=== PATIENT | female | born 1975 | race Caucasian/White ===

== ENCOUNTER 2019-03-03 09:29 | Day surgery (SDC) | payer OTHER ==
[~2019-03-03 09:29] MED LIST: Sodium Chloride 0.9% 10 ML SDV IV PRN; Sodium Chloride 0.9% 10 ML Syringe FLUSH PRN; Sodium Chloride 0.9% 2.5 ML Syringe FLUSH PRN; ceFAZolin 2 GM in Premix Bag 1 BAG IV ONE
[2019-03-03] MEDS ORDERED: Lactated Ringers 1,000 ML IV SCH (09:30)
--- NOTE | 2019-03-03 10:09 | PCM.PREANE ---
Preanesthetic Assessment - Anesthesia/Transfusion/Family Hx Anesthesia History: Prior Anesthesia Without Reaction Other Type of Anesthesia Reaction Comment: "sometimes it takes me a long time to wake up" Family History of Anesthesia Reaction: No Transfusion History: No Prior Transfusion(s) Intubation History: Unknown - Review of Systems General: No Symptoms Pulmonary: No Symptoms Cardiovascular: No Symptoms Gastrointestinal: No Symptoms Neurological: No Symptoms Other: Reports: None - Physical Assessment Vital Signs: Last Vital Signs Temp 36.2 C 03/03/19 09:40 Pulse 75 03/03/19 09:40 Resp 18 03/03/19 09:40 BP 127/76 03/03/19 09:40 Pulse Ox 100 03/03/19 09:40 Height: 5 ft 9.25 in Weight: 86.183 kg ASA Class: 2 Mental Status: Alert & Oriented x3 Airway Class: Mallampati = 2 Dentition: Reports: Normal Dentition Thyro-Mental Finger Breadths: 3 Mouth Opening Finger Breadths: 3 ROM/Head Extension: Full Lungs: Clear to Auscultation, Normal Respiratory Effort Cardiovascular: Regular Rate, Regular Rhythm - Lab Values: Laboratory Last Values WBC 6.25 K/uL (4.0-11.0) 03/03/19 09:57 RBC 4.18 M/uL (4.30-5.90) L 03/03/19 09:57 Hgb 13.3 g/dL (12.0-16.0) 03/03/19 09:57 Hct 39.9 % (36.0-46.0) 03/03/19 09:57 MCV 95.5 fL (80.0-98.0) 03/03/19 09:57 MCH 31.8 pg (27.0-32.0) 03/03/19 09:57 MCHC 33.3 g/dL (31.0-37.0) 03/03/19 09:57 RDW Std Deviation 48.9 fl (28.0-62.0) 03/03/19 09:57 RDW Coeff of Mau 14 % (11.0-15.0) 03/03/19 09:57 Plt Count 316 K/uL (150-400) 03/03/19 09:57 MPV 10.10 fL (7.40-12.00) 03/03/19 09:57 Nucleated RBC % 0.0 /100WBC 03/03/19 09:57 Nucleated RBCs # 0 K/uL 03/03/19 09:57 - Allergies Allergies/Adverse Reactions: Allergies Allergy/AdvReac Type Severity Reaction Status Date / Time NSAIDS (Non-Steroidal Allergy "due to Verified 02/25/19 12:56 Anti-Inflamma nephrectomy" - Blood Blood Available: No - Anesthesia Plan Pre-Op Medication Ordered: None - Acknowledgements Anesthesia Type Planned: General Anesthesia Pt an Appropriate Candidate for the Planned Anesthesia: Yes Alternatives and Risks of Anesthesia Discussed w Pt/Guardian: Yes Pt/Guardian Understands and Agrees with Anesthesia Plan: Yes PreAnesthesia Questionnaire HEENT History: Reports: Other (See Below) Other HEENT History: wears glasses Cardiovascular History: Reports: None Respiratory History: Reports: Sleep Apnea Other Respiratory History: uses CPAP Gastrointestinal History: Reports: GERD, Hiatal Hernia Genitourinary History: Reports: None [employer]ER History: Reports: Musculoskeletal History: Reports: None Neurological History: Reports: Concussion Psychiatric History: Reports: ADD, Anxiety, Depression Endocrine/Metabolic History: Reports: None Hematologic History: Reports: None Immunologic History: Reports: None Oncologic (Cancer) History: Reports: None Dermatologic History: Reports: None - Past Surgical History Head Surgeries/Procedures: Reports: None HEENT Surgical History: Reports: Naso-Sinus Surgery, Tonsillectomy Other HEENT Surgeries/Procedures: hx septoplasty Cardiovascular Surgical History: Reports: None Respiratory Surgical History: Reports: None GI Surgical History: Reports: EGD, Hernia, Abdominal Female Surgical History: Reports: Hysterectomy, Nephrectomy, Other (See Below ) Other Female Surgeries/Procedures: donor nephrectomy, hx laparoscopy, LAVH with umbilical hernia repair Endocrine Surgical History: Reports: None Neurological Surgical History: Reports: Laminectomy Musculoskeletal Surgical History: Reports: Arthroscopic Knee Oncologic Surgical History: Reports: None Dermatological Surgical History: Reports: Other (See Below) - SUBSTANCE USE Smoking Status *Q: Current Every Day Smoker Tobacco Use Within Last Twelve Months: Cigarettes - HOME MEDS Home Medications: Home Meds Pantoprazole Sodium 40 mg PO DAILY 07/08/15 [History] Sertraline HCl 100 mg PO DAILY 07/08/15 [History] Dextroamphetamine/Amphetamine [Adderall 20 mg Tablet] 20 mg PO DAILY 02/25/19 [ History] rOPINIRole [Requip] 0.5 mg PO BEDTIME PRN 02/25/19 [History] traZODone HCl [Trazodone HCl] 50 mg PO BEDTIME PRN 02/25/19 [History] - CURRENT (IN HOUSE) MEDS Current Meds: Current Medications Lactated Ringer's (Ringers, Lactated) 1,000 mls @ 100 mls/hr IV ASDIRECTED BISI Last Admin: 03/03/19 09:55 Dose: 100 mls/hr Sodium Chloride (Saline Flush) 10 ml FLUSH ASDIRECTED PRN PRN Reason: Keep Vein Open Sodium Chloride (Saline Flush) 2.5 ml FLUSH ASDIRECTED PRN PRN Reason: Keep Vein Open Sodium Chloride (Normal Saline) 10 ml IV ASDIRECTED PRN PRN Reason: IV Use Discontinued Medications Cefazolin Sodium/Dextrose 2 gm (/ Premix) 50 mls @ 100 mls/hr IV ONETIME ONE Stop: 03/03/19 05:29
[2019-03-03 10:25] LABS: BLOOD UREA NITROGEN,BUN 14 mg/dL (7.0-18.0); CARBON DIOXIDE,CO2 28.8 mmol/L (21.0-32.0); CHLORIDE,CL 105 mmol/L (98-107); GLUCOSE RANDOM 84 mg/dL (74-106); POTASSIUM,K 4.1 mmol/L (3.5-5.1); SODIUM,NA 143 mmol/L (136-145)
[2019-03-03] MEDS ORDERED: Propofol 200 MG/20 ML SDV ONE ×2 (10:39→10:46)
[2019-03-03] MEDS ORDERED: fentaNYL 100 MCG/2 ML SDV ONE (10:39)
[2019-03-03] MEDS ORDERED: Midazolam 1 MG/ML 2 ML SDV ONE (10:40)
[2019-03-03] MEDS ORDERED: Furosemide 40 MG/4 ML VIAL ONE (10:52)
[2019-03-03] MEDS ORDERED: Lidocaine 1% with EPINEPHrine 1:100,000 20 ML MDV ONE (11:53)
[2019-03-03] MEDS ORDERED: Neomycin/Polymyxin B Bladder Irrigation 1 ML Amp ONE (11:53)
[2019-03-03] MEDS ORDERED: Bupivacaine 0.25% 10 ML SDV ONE (11:53)
[2019-03-03] MEDS ORDERED: Fluorescein 5 ML Vial ONE (12:28)
[2019-03-03] MEDS ORDERED: fentaNYL 100 MCG/2 ML SDV IVPUSH PRN (12:42)
[2019-03-03] MEDS ORDERED: Octyl 2-Cyanoacrylate 1 Tube ONE (12:51)
--- NOTE | 2019-03-03 13:16 | PCM.OPNOTE ---
- General Post-Op/Procedure Note Date of Surgery/Procedure: 03/03/19 Operative Procedure(s): TOVT mid urethral sling, cystoscopy Findings: urethral hypermobility, stress urinary incontinence Pre Op Diagnosis: Urethral hypermobility. ZAID Post-Op Diagnosis: Same Anesthesia Technique: Local, MAC Primary Surgeon: Emerald Jaramillo Fluid Replacement, Intraop: 1,200 EBL in mLs: 20 Complications: none known Condition: Good Free Text/Narrative:: Dictation [id number]
--- NOTE | 2019-03-03 13:38 | PCM.POSTAN ---
POST ANESTHESIA ASSESSMENT - MENTAL STATUS Mental Status: Alert, Oriented - VITAL SIGNS Vital Signs: Last Vital Signs Temp 36.6 C 03/03/19 13:27 Pulse 68 03/03/19 13:27 Resp 16 03/03/19 13:27 BP 106/61 03/03/19 13:27 Pulse Ox 99 03/03/19 13:27 - RESPIRATORY Respiratory Status: Respiratory Rate WNL, Airway Patent, O2 Saturation Stable - CARDIOVASCULAR CV Status: Pulse Rate WNL, Blood Pressure Stable - GASTROINTESTINAL GI Status: No Symptoms - PAIN Pain Score: 0 - POST OP HYDRATION Hydration Status: Adequate & Stable - OBSERVATIONS Free Text/Narrative:: No anesthesia problems
[2019-03-03 14:08] VITALS: BP 119/77; PULSE 59
--- NOTE | 2019-03-03 14:08 | PCM48HPAN ---
Post Anesthesia Note - EVALUATION WITHIN 48HRS OF ANESTHETIC Vital Signs in Normal Range: Yes Patient Participated in Evaluation: Yes Respiratory Function Stable: Yes Airway Patent: Yes Cardiovascular Function Stable: Yes Hydration Status Stable: Yes Pain Control Satisfactory: Yes Nausea and Vomiting Control Satisfactory: Yes Mental Status Recovered: Yes Vital Signs: Last Vital Signs Temp 36.6 C 03/03/19 13:27 Pulse 68 03/03/19 13:27 Resp 16 03/03/19 13:27 BP 106/61 03/03/19 13:27 Pulse Ox 99 03/03/19 13:27 - COMMENTS/OBSERVATIONS Free Text/Narrative:: No anesthesia problems
[2019-03-03] MEDS ORDERED: oxyCODONE 5 MG Tab PO ONE (14:15)
--- NOTE | 2019-03-03 14:17 | OR ---
SURGEON: Emerald Jaramillo M.D. DATE OF PROCEDURE: 03/03/2019 PREOPERATIVE DIAGNOSES: 1. Urethral hypermobility. 2. Stress urinary incontinence. POSTOPERATIVE DIAGNOSES: 1. Urethral hypermobility. 2. Stress urinary incontinence. PROCEDURES: 1. Transobturator vaginal taping, midurethral sling. 2. Cystoscopy. PRIMARY SURGEON: Emerald Jaramillo MD. FOAM RUBBER MIXER: KRYSTEN Smith. ANESTHESIA: MAC with local. ESTIMATED BLOOD LOSS: 20 mL. FLUIDS: 1200 mL of crystalloid. COMPLICATIONS: None known. FINDINGS: Urethral hypermobility. DISPOSITION: The patient to PACU in stable condition. PROCEDURE DETAILS: Hannah is a 43-year-old female who has ongoing difficulties with urethral hypermobility and stress urinary incontinence. Cystometry indicates that she would be a reasonable candidate for midurethral sling. She does prefer surgical intervention versus more conservative measure. She has already tried Kegel's without relief. 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 Risks of procedure have been discussed. Proper consent obtained. The patient was taken to the operating room where she underwent MAC anesthetic, was placed in modified dorsal lithotomy position, was prepped and draped in usual sterile fashion. SCDs to lower extremities. Alfred catheter was placed. Received Ancef prophylactically. Time-out was performed. I was able to palpate the anatomical landmarks including the adductor longus tendons directly below this, the notching in the pubic bone just in line with the clitoral li. This region was marked with a marking pen. This region was now prepped with the 0.25% Marcaine, 1% lidocaine dilute local solution. Prepped behind the pubic bone as well. A weighted speculum was placed vaginally just below the urethral meatus. Allis clamp was placed on the vaginal mucosa in the midline and this region and periurethral spaces were prepped with the 0.25% Marcaine, 1% lidocaine diluted solution. Please see nurse's notes for total dispensed during the procedure. In the midline, sagittal, a 1.5 cm mucosal incision was created with a 15 blade scalpel. Also, groin incision was created on either side using the blade scalpel. The periurethral spaces on either side were now dissected using Metzenbaum scissors with sharp and blunt dissection until the medial aspect of the pubic bone was able to be palpated. This was performed on the right and left side. The left index finger was introduced through the vaginal incision to the level of the bone. The left introducer was now placed through the left groin incision perforating transobturator membrane and muscle, rotating behind the bone, and exiting through the left vaginal incision. Sulcus was inspected, found to be intact. Tape was attached and removed through the port of entry. In similar fashion, performed on the patient's right side. Was able to place right index finger into the vaginal incision until able to palpate the medial aspect of the bone. Was able to introduce the right introducer through the groin incision, rotate behind the pubic bone, exiting through the vaginal incision, attaching the tape, and removing the introducer tape through the port of entry. At this juncture, Alfred catheter was removed. Cystoscope was introduced, cystoscopy was performed. The dome of the bladder was found to be intact. The sidewalls of the bladder found to be intact. The trigone was inspected and found to be intact as well as the urethral region. The cystoscope was removed. The Alfred catheter was replaced. The tape was now gently tightened. The introducers were now removed from the tape. The sleeve of the tape was able to be irrigated with saline, Neosporin solution. The overlying plastic sheaths were now removed from the underlying tape while the tape was being tented downward in the midline. At this juncture, the patient was able to cough vigorously and with the Alfred catheter being removed was able to cough vigorously and no leakage was noted. Therefore, the tape was felt to have satisfactory tension. While tenting the tape downward in the midline, was able to trim the tape edges on either side of groin incisions. The vaginal mucosa was now reapproximated using 3-0 Vicryl in continuous running locked fashion. The groin incisions were reapproximated using skin glue. The sulci were once again inspected of the vaginal mucosa and found to be intact. Hemostasis evident. Sponge, instrument, and needle count was correct x2. The patient has tolerated the procedure well overall. The Alfred catheter is replaced, and she will go to PACU where she will undergo voiding trial when she is more alert. VAIBHAV MONROE /[id number]
== END 2019-03-03 14:35 | disposition home or self-care (01) ==
LOC: MW.SDS 09:29
PROVIDERS: ATTEND Obstetrics & Gynecology
DX: N39.3 Stress incontinence (female) (male) (principal); N36.41 Hypermobility of urethra; K21.9 Gastro-esophageal reflux disease without esophagitis; F32.9 Major depressive disorder, single episode, unspecified; F17.210 Nicotine dependence, cigarettes, uncomplicated; G47.30 Sleep apnea, unspecified; Z88.6 Allergy status to analgesic agent; Z99.89 Dependence on other enabling machines and devices; Z79.899 Other long term (current) drug therapy
CPT/HCPCS: 36415; 57288; 80048; 85027; A9270; J2250; J2704; J3010; J3490; J7120; 00910; C1771; J1940